=== PATIENT | female | born 1985 | race Caucasian/White ===

== ENCOUNTER → 2023-02-15 | Outpatient (CLI) | payer OTHER ==
--- NOTE | 2023-02-15 15:44 | US ---
EXAMINATION TYPE: US transvaginal DATE OF EXAM: 02/15/2023 COMPARISON: CLINICAL INDICATION: Female, 37 years old with history of R10.2 PELVIC AND PERINEAL PAIN; Patient sta agueda irregular menses. Hx of tubal ligation and csection x 1. TECHNIQUE: Transvaginal (TV). Date of LMP: 12/29/2022, EXAM MEASUREMENTS: Uterus: 9.5 x 5.9 x 5.7 cm Endometrial Stripe: 2.8 cm Right Ovary: 2.7 x 1.7 x 1.5 cm Left Ovary: 3.8 x 3.5 x 2.5 cm 1. Uterus: Anteverted hypoechoic vascular complex lesion seen at anterior ALEXI near csection scar = 1.4 x 1.3 x 1.0 cm 2. Endometrium: Appears thickened 3. Right Ovary: follicles seen 4. Left Ovary: complex hypoechoic lesion = 2.8 x 2.8 x 2.1 cm Spectral, color and waveform doppler imaging shows good arterial and venous flow within the ovaries ; there is no evidence for ovarian torsion. 5. Bilateral Adnexa: free fluid in right adnexa 6. Posterior cul-de-sac: free fluid IMPRESSION: 1. Complex lesion left ovary reflect a hemorrhagic cyst or complex cyst. Follow-up can be obtained i n 6-12 weeks. 2. Nonspecific hypoechoic vascular complex lesion seen at anterior ALEXI
== END | disposition home or self-care (01) ==
LOC: RADUSWWP 14:54
PROVIDERS: ATTEND Family Medicine
DX: N83.8 Other noninflammatory disorders of ovary, fallopian tube and broad ligament (principal); R10.2 Pelvic and perineal pain
CPT/HCPCS: 76830

== ENCOUNTER 2023-09-29 00:52 | Emergency (ER) | payer OTHER ==
[2023-09-29 01:17] VITALS: BP 145/89; PULSE 56; RESP 18; TEMP 98
[2023-09-29] MEDS ORDERED: KETOROLAC 15 MG/ML 1 ML VIAL IM STA (01:19)
[2023-09-29] MEDS ORDERED: ACET/COD 300 MG/30 MG STARTER PACK 6 TAB BTL PO STA ×2 (01:20→01:21)
--- NOTE | 2023-09-29 01:24 | ED ---
General Adult HPI - General Chief complaint: Dental/Oral Stated complaint: Tooth pain Time Seen by Provider: 09/29/23 01:08 Source: patient, RN notes reviewed Mode of arrival: ambulatory Limitations: no limitations - History of Present Illness Initial comments: 38-year-old female with no significant past medical history presents the emergency department with a chief complaint of dental pain. Patient reports that she has had worsening dental pain for the last month however is increased in pain when she tried to lay down to go to sleep tonight. She does report she has a dental appointment however is nontoxic October. She reports pain that is radiating to her face. Denies any history distress, cough, drooling. She was seen and evaluated at [facility] case her cephalexin and Toradol which has not helped her symptoms. - Related Data Home Medications Medication Instructions Recorded Confirmed Dextroamphetamine/Amphetamine 20 mg PO DAILY 06/23/23 07/07/23 [Adderall] Previous Rx's Medication Instructions Recorded Ibuprofen [Motrin] 800 mg PO Q8H #30 tab 09/29/23 Allergies Allergy/AdvReac Type Severity Reaction Status Date / Time No Known Allergies Allergy Verified 07/07/23 10:20 Review of Systems ROS Statement: Those systems with pertinent positive or pertinent negative responses have been documented in the HPI. ROS Other: All systems not noted in ROS Statement are negative. Past Medical History Additional Past Medical History / Comment(s): ADHD History of Any Multi-Drug Resistant Organisms: None Reported Past Surgical History: Cholecystectomy Past Psychological History: ADD/ADHD Smoking Status: Former smoker Past Alcohol Use History: None Reported Past Drug Use History: None Reported General Exam - General Exam Comments Initial Comments: General: Alert, in no acute distress Head: atraumatic normocephalic. Eyes PERRL, EOMI intact, mucous membranes moist, tooth 30 Respiratory: Lungs clear to auscultation bilaterally Cardiovascular: Rate regular rate and Abdominal: Soft without guarding or rebound Extremities: Normal inspection with full range of motion and normal capillary refill Neuroogic: alert and oriented 3, CN II-XII intact, able to ambulate with steady gait Skin: warm dry and intact with normal color Limitations: no limitations Course Vital Signs 09/29/23 00:55 Temperature 98 F Pulse Rate 56 L Respiratory 18 Rate Blood Pressure 145/89 O2 Sat by Pulse 100 Oximetry Medical Decision Making - Medical Decision Making Was pt. sent in by a medical professional or institution (CRYSTAL Kilpatrick, [employer], urgent care, hospital, or intermediate...) When possible be specific @ -[No] Did you speak to anyone other than the patient for history (EMS, parent, family, police, friend...)? What history was obtained from this source @ -[No] Did you review nursing and triage notes (agree or disagree)? Why? @ -[I reviewed and agree with nursing and triage notes] Were old charts reviewed (outside hosp., previous admission, EMS record, old EKG, old radiological studies, urgent care reports/EKG's, intermediate records)? Report findings @ -[No old charts were reviewed] Differential Diagnosis (chest pain, altered mental status, abdominal pain women, abdominal pain men, vaginal bleeding, weakness, fever, dyspnea, syncope, headache, dizziness, GI bleed, back pain, seizure, CVA, palpatations, mental health, musculoskeletal)? @ -[not applicable] EKG interpreted by me (3pts min.). @ -[As above] X-rays interpreted by me (1pt min.). @ -[None done] CT interpreted by me (1pt min.). @ -[None done] U/S interpreted by me (1pt. min.). @ -[None done] What testing was considered but not performed or refused? (CT, X-rays, U/S, labs)? Why? @ -[None] What meds were considered but not given or refused? Why? @ -[None] Did you discuss the management of the patient with other professionals (professionals i.e. CRYSTAL Kilpatrick, [employer]ER, lab, RT, psych nurse, social media campaign manager, lion trainer, teacher, commissioned fire officer, renal case manager)? Give summary @ -[No] Was smoking cessation discussed for >3mins.? @ -[No] Was critical care preformed (if so, how long)? @ -[No] Were there social determinants of health that impacted care today? How? (Homelessness, low income, unemployed, alcoholism, drug addiction, transportati on, low edu. Level, literacy, decrease access to med. care, [place] [facility], rehab)? @ -[No] Was there de-escalation of care discussed even if they declined (Discuss DNR or withdrawal of care, Hospice)? DNR status @ -[No] What co-morbidities impacted this encounter? (DM, HTN, Smoking, COPD, CAD, Cancer, CVA, ARF, Chemo, Hep., AIDS, mental health diagnosis, sleep apnea, morbid obesity)? @ -[None] Was patient admitted / discharged? Hospital course, mention meds given and route, prescriptions, significant lab abnormalities, going to OR and other pertinent info. @ -Discharged. This is a pleasant 38-year-old female who presents the emergency department with dental pain. Exam reveals severe tooth decay at 2:30. No evidence of dental abscess. Patient will be given Toradol, Tylenol with Codeine starter pack and Motrin 800. Technical follow-up with dentist in 3-5 days. Precautions discussed at length. Patient discharged in stable condition. Case is discussed with Dr. Tillman who agrees with POC. Undiagnosed new problem with uncertain prognosis? @ -[No] Drug Therapy requiring intensive monitoring for toxicity (Heparin, Nitro, Insulin, Cardizem)? @ -[No] Were any procedures done? @ -[No] Diagnosis/symptom? @ -Dental Pain Acute, or Chronic, or Acute on Chronic? @ -Acute Uncomplicated (without systemic symptoms) or Complicated (systemic symptoms)? @ -Uncomplicated Side effects of treatment? @ -[No] Exacerbation, Progression, or Severe Exacerbation? @ -[No] Poses a threat to life or bodily function? How? (Chest pain, [place], [place], pneumonia, PE, COPD, DKA, ARF, appy, cholecystitis, CVA, Diverticulitis, Homicidal, Suicidal, threat to staff... and all critical care pts) @ -Low likelihood Disposition Clinical Impression: Pain, dental Disposition: HOME SELF-CARE Condition: Stable Instructions (If sedation given, give patient instructions): Toothache (ED) Additional Instructions: Please take Tylenol Motrin for pain Please follow-up with your dentist in 3-5 days Please return to the nearest emergency department if worsening pain, fever, facial swelling or difficulty in breathing develop Prescriptions: Ibuprofen [Motrin] 800 mg PO Q8H #30 tab Is patient prescribed a controlled substance at d/c from ED?: No Referrals: Mikhail Franco DO [Primary Care Provider] - 1-2 days Time of Disposition: 01:24
== END 2023-09-29 02:01 | disposition home or self-care (01) ==
LOC: EC 00:52
DX: K08.89 Other specified disorders of teeth and supporting structures (principal); Z86.59 Personal history of other mental and behavioral disorders; Z87.891 Personal history of nicotine dependence
CPT/HCPCS: 99282; 96372; J1885

== ENCOUNTER 2023-09-29 04:14 | Emergency (ER) | payer OTHER ==
[2023-09-29] MEDS ORDERED: AMOXIC-POT CLAV 875-125MG 1 EACH TAB PO STA (04:35)
[2023-09-29] MEDS ORDERED: DEXAMETHASONE SOD PHOSPHATE 10 MG/ML 1 ML VIAL IM STA (04:35)
[2023-09-29] MEDS ORDERED: traMADol 50 MG TAB PO STA (04:35)
--- NOTE | 2023-09-29 04:36 | ED ---
ENT HPI - General Chief complaint: Shortness of Breath Stated complaint: numbness in face/sob Time Seen by Provider: 09/29/23 04:26 Source: patient, RN notes reviewed, old records reviewed Mode of arrival: ambulatory Limitations: no limitations - History of Present Illness Initial comments: This is a 38-year-old female to the ER today. She presents today for evaluation regards to facial swelling significant facial swelling that occurred after visit earlier today. Patient is in the emergency room earlier today for evaluation regards to dental pain severe. Patient does have an appointment to follow-up with dentist in the new here. She has significant swelling and pain in her jaw right side of her neck and face MD complaint: other (Significant facial pain tooth pain) -: days(s) Location: tooth # Severity: severe Severity scale (1-10): 8 Consistency: constant Improves with: none Worsens with: none Context- Dental: history of dental caries, poor dental care Associated Symptoms: other - Related Data Home Medications Medication Instructions Recorded Confirmed Dextroamphetamine/Amphetamine 20 mg PO DAILY 06/23/23 07/07/23 [Adderall] Previous Rx's Medication Instructions Recorded Amoxic-Pot Clav 875-125Mg 1 tab PO Q12HR #20 tablet 09/29/23 [Augmentin 875-125] Ibuprofen [Motrin] 800 mg PO Q8H #30 tab 09/29/23 dexAMETHasone [Decadron] 6 mg PO TID #6 tablet 09/29/23 Allergies Allergy/AdvReac Type Severity Reaction Status Date / Time No Known Allergies Allergy Verified 09/29/23 04:20 Review of Systems ROS Statement: Those systems with pertinent positive or pertinent negative responses have been documented in the HPI. ROS Other: All systems not noted in ROS Statement are negative. Past Medical History Additional Past Medical History / Comment(s): ADHD History of Any Multi-Drug Resistant Organisms: None Reported Past Surgical History: Cholecystectomy Past Psychological History: ADD/ADHD Smoking Status: Former smoker Past Alcohol Use History: None Reported Past Drug Use History: None Reported General Exam Limitations: no limitations General appearance: alert, in no apparent distress Head exam: Present: atraumatic, normocephalic, normal inspection Eye exam: Present: normal appearance, PERRL, EOMI. Absent: scleral icterus, conjunctival injection, periorbital swelling ENT exam: Present: other Neck exam: Present: normal inspection. Absent: tenderness, meningismus, lymphadenopathy Respiratory exam: Present: normal lung sounds bilaterally. Absent: respiratory distress, wheezes, rales, rhonchi, stridor Cardiovascular Exam: Present: regular rate, normal rhythm, normal heart sounds. Absent: systolic murmur, diastolic murmur, rubs, gallop, clicks GI/Abdominal exam: Present: soft, normal bowel sounds. Absent: distended, tenderness, guarding, rebound, rigid Extremities exam: Present: normal inspection, full ROM, normal capillary refill. Absent: tenderness, pedal edema, joint swelling, calf tenderness Back exam: Present: normal inspection Neurological exam: Present: alert, oriented X3, CN II-XII intact Psychiatric exam: Present: normal affect, normal mood Skin exam: Present: warm, dry, intact, normal color. Absent: rash Course Vital Signs 09/29/23 09/29/23 09/29/23 04:20 04:30 06:22 Pulse Rate 63 72 Respiratory 18 22 18 Rate Blood Pressure 179/19 158/95 O2 Sat by Pulse 99 99 Oximetry - Reevaluation(s) Reevaluation #1: 09/29/23 05:05 Medical records reviewed Reevaluation #2: 09/29/23 06:22 Patient symptoms are improved Reevaluation #3: 09/29/23 06:22 Patient informed of results questions answered Reevaluation #4: 09/29/23 04:55 Was pt. sent in by a medical professional or institution (, PA, SLEEPING [employer] CONDUCTOR, urgent care, hospital, or intermediate...) When possible be specific @ -no Did you speak to anyone other than the patient for history (EMS, parent, family, police, friend...)? What history was obtained from this source @ -no Did you review nursing and triage notes (agree or disagree)? Why? @ -agree Are old charts reviewed (outside hosp., previous admission, EMS record, old EKG, old radiological studies, urgent care reports/EKG's, intermediate records)? Report findings @ -yes Differential Diagnosis (chest pain, altered mental status, abdominal pain women, abdominal pain men, vaginal bleeding, weakness, fever, dyspnea, syncope, headache, dizziness, GI bleed, back pain, seizure, CVA, palpatations, mental hea lth, musculoskeletal)? @ -prior EKG interpreted by me (3pts min.). @ -no X-rays interpreted by me (1pt min.). @ -yes negative for acute disease CT interpreted by me (1pt min.). @ -no U/S interpreted by me (1pt. min.). @ -no What testing was considered but not performed or refused? (CT, X-rays, U/S, labs)? Why? @ -none What meds were considered but not given or refused? Why? @ -none Did you discuss the management of the patient with other professionals (professionals i.e. , PA, SLEEPING CAR CONDUCTOR, lab, RT, psych nurse, social welfare administrator, cyber engineer, teacher, network security officer, nurse case management)? Give summary @ -no Was smoking cessation discussed for >3mins.? @ -no Was critical care preformed (if so, how long)? @ -no Were there social determinants of health that impacted care today? How? (Homelessness, low income, unemployed, alcoholism, drug addiction, transportation, low edu. Level, literacy, decrease access to med. care, [facility], rehab)? @ -none Was there de-escalation of care discussed even if they declined (Discuss DNR or withdrawal of care, Hospice)? DNR status @ -no What co-morbidities impacted this encounter? (DM, HTN, Smoking, COPD, CAD, Cancer, CVA, ARF, Chemo, Hep., AIDS, mental health diagnosis, sleep apnea, morbid obesity)? @ -none Was patient admitted / discharged? Hospital course, mention meds given and route, prescriptions, significant lab abnormalities, going to OR and other pert inent info. @ - 38 female with significant facial swelling right-sided facial swelling from dental abscess and history of dental caries place on antibiotics, patient can be discharged home swelling is significantly improved here in the ER Undiagnosed new problem with uncertain prognosis? @ -no Drug Therapy requiring intensive monitoring for toxicity (Heparin, Nitro, Insulin, Cardizem)? @ -no Were any procedures done? @ -no Diagnosis/symptom? @ -Dental abscess Acute, or Chronic, or Acute on Chronic? @ -Acute Uncomplicated (without systemic symptoms) or Complicated (systemic symptoms)? @ -Complicated Side effects of treatment? @ -no Exacerbation, Progression, or Severe Exacerbation? @ -exacerbation Poses a threat to life or bodily function? How? (Chest pain, [place], [place], pneumonia, PE, COPD, DKA, ARF, appy, cholecystitis, CVA, Diverticulitis, Homicidal, Suicidal, threat to staff... and all critical care pts) @ -no Medical Decision Making - Medical Decision Making 38 female with significant facial swelling Right-sided facial swelling from dental abscess and history of dental caries place on antibiotics, patient can be discharged home swelling is significantly improved here in the ER - Radiology Data Radiology results: report reviewed (X-ray soft tissue neck negative for acute disease), image reviewed Disposition Clinical Impression: Pain, dental, Facial swelling Disposition: HOME SELF-CARE Condition: Good Instructions (If sedation given, give patient instructions): Dental Abscess (ED) Prescriptions: Amoxic-Pot Clav 875-125Mg [Augmentin 875-125] 1 tab PO Q12HR #20 tablet dexAMETHasone [Decadron] 6 mg PO TID #6 tablet Is patient prescribed a controlled substance at d/c from ED?: No Referrals: Mikhail Franco DO [Primary Care Provider] - 1-2 days Mesfin Miles DDS [STAFF PHYSICIAN] - 1-2 days
[2023-09-29] MEDS ORDERED: ETODOLAC 400 MG TAB PO STA (04:37)
[2023-09-29 04:40] VITALS: RESP 18
[2023-09-29] MEDS ORDERED: traMADol 50 MG STARTER PACK 3 TAB BTL PO STA (06:22)
[2023-09-29] MEDS ORDERED: AMOXIC-POT CLAV 875MG STARTER PACK 2 TAB BTL PO STA (06:22)
[2023-09-29 06:57] VITALS: BP 158/95; PULSE 72
--- NOTE | 2023-09-29 07:25 | XR ---
EXAM: XR Soft Tissue Neck CLINICAL HISTORY: ITS.REASON XR Reason: pain TECHNIQUE: Frontal and lateral views of the soft tissues of the neck. COMPARISON: X-ray cervical spine dated 09/17/15 FINDINGS: Airway: Unremarkable. No abnormal narrowing. Bones/joints: Unremarkable. No acute fracture. Soft tissues: Unremarkable. No abnormal soft tissue prominence. Normal epiglottis. IMPRESSION: No evidence of acute abnormality
== END 2023-09-29 06:39 | disposition home or self-care (01) ==
LOC: EC 04:14
DX: K04.7 Periapical abscess without sinus (principal); R22.9 Localized swelling, mass and lump, unspecified; Z86.59 Personal history of other mental and behavioral disorders; Z87.891 Personal history of nicotine dependence
CPT/HCPCS: 70360; 99285; 96372; J1100

== ENCOUNTER 2025-02-07 11:34 | Emergency (ER) | payer OTHER ==
[2025-02-07 11:37] VITALS: TEMP 98.1
--- NOTE | 2025-02-07 11:54 | ED ---
Extremity Problem HPI - General Chief complaint: Extremity Problem,Nontraumatic Stated complaint: R shoulder/arm pain Time Seen by Provider: 02/07/25 11:37 Source: patient, RN notes reviewed Mode of arrival: ambulatory Limitations: no limitations - History of Present Illness Initial comments: This is a 39-year-old female who presents to the emergency department for right arm pain. States that for the last 5 weeks she has had pain in the back of the right shoulder. Believes that she may have overused it or injured it from sleeping on it wrong. Pain is much worse with movement. For the last week she has started to notice pain and tingling going down the arm into her fingertips, which concerned her. She has not yet had this evaluated. She did have improvement with topical analgesics. - Related Data Home Medications Medication Instructions Recorded Confirmed Dextroamphetamine/Amphetamine 20 mg PO DAILY 06/23/23 07/07/23 [Adderall] Previous Rx's Medication Instructions Recorded Amoxic-Pot Clav 875-125Mg 1 tab PO Q12HR #20 tablet 09/29/23 [Augmentin 875-125] Ibuprofen [Motrin] 800 mg PO Q8H #30 tab 09/29/23 dexAMETHasone [Decadron] 6 mg PO TID #6 tablet 09/29/23 Ibuprofen 800 mg PO Q8H PRN #30 tab 02/07/25 methocarbamoL [Robaxin-750] 1,500 mg PO TID PRN #30 tab 02/07/25 Allergies Allergy/AdvReac Type Severity Reaction Status Date / Time No Known Allergies Allergy Verified 09/29/23 04:20 Review of Systems ROS Statement: Those systems with pertinent positive or pertinent negative responses have been documented in the HPI. ROS Other: All systems not noted in ROS Statement are negative. Past Medical History Additional Past Medical History / Comment(s): ADHD History of Any Multi-Drug Resistant Organisms: None Reported Past Surgical History: Cholecystectomy Past Psychological History: ADD/ADHD Smoking Status: Former smoker Past Alcohol Use History: None Reported Past Drug Use History: None Reported General Exam Limitations: no limitations General appearance: alert, in no apparent distress Head exam: Present: atraumatic, normocephalic, normal inspection Respiratory exam: Present: normal lung sounds bilaterally. Absent: respiratory distress, wheezes, rales, rhonchi, stridor Cardiovascular Exam: Present: regular rate, normal rhythm Extremities exam: Present: other (Tenderness to palpation of the posterior right shoulder. Range of motion induces pain. 2+ radial pulses) Neurological exam: Present: alert, oriented X3, CN II-XII intact Psychiatric exam: Present: normal affect, normal mood Skin exam: Present: warm, dry, intact, normal color. Absent: rash Course Vital Signs 02/07/25 02/07/25 11:34 13:06 Temperature 98.1 F Pulse Rate 73 63 Respiratory 16 18 Rate Blood Pressure 171/112 165/112 O2 Sat by Pulse 98 98 Oximetry Medical Decision Making - Medical Decision Making This is a 39-year-old female who presents to the emergency department for right shoulder pain. Was pt. sent in by a medical professional or institution? @ -No Did you speak to anyone other than the patient for history? @ -No Did you review nursing and triage notes? @ -Yes, and I agree, it is accurate with regards to the patient's symptoms. Were old charts reviewed? @ -No Differential Diagnosis? @ -Differential Musculoskeletal Muscular strain, contusion, ligament sprain, fracture, arthritis, septic arthritis, bursitis, cellulitis, muscle spasm, nerve compression, DVT, arterial occlusion, herpes zoster, electrolyte abnormality, tumor.... This is not meant to be in all inclusive list EKG interpreted by me (3pts min.)? @ -Not obtained X-rays interpreted by me (1pt min.)? @ -X-ray of the right shoulder and cervical spine obtained. My interpretation identifies no acute fractures. CT interpreted by me (1pt min.)? @ -Not obtained U/S interpreted by me (1pt. min.)? @ -Not obtained What testing was considered but not performed? (CT, X-rays, U/S, labs)? Why? @ -None What meds were considered but not given? Why? @ -None Did you discuss the management of the patient with other professionals? @ -No Did you reconcile home meds? @ -No Was smoking cessation discussed for >3mins.? @ -No Was critical care preformed (if so, how long)? @ -No Were there social determinants of health that impacted care today? How? (Homelessness, low income, unemployed, alcoholism, drug addiction, transportation, low edu. Level, literacy, decrease access to med. care, correction, rehab)? @ -No Was there de-escalation of care discussed even if they declined? (Discuss DNR or withdrawal of care, Hospice)? @ -No What co-morbidities impacted this encounter? (DM, HTN, Smoking, COPD, CAD, Cancer, CVA, Hep., AIDS, mental health diagnosis, sleep apnea, morbid obesity)? @ -None Was patient admitted / discharged? @ -Discharged. X-ray of the right shoulder and cervical spine obtained revealing no acute process. Pain was treated in the emergency department. Prescription for ibuprofen and Robaxin provided with dosing instructions reviewed. She was also given information for follow-up with orthopedics if symptoms persist. Patient discharged home in stable condition. Case discussed with ED attending Dr. Davidson. Return precautions reviewed in depth, the patient is instructed to return to the emergency department with any new, worsening, or concerning symptoms. Patient verbalized understanding. Undiagnosed new problem with uncertain prognosis? @ -None Drug Therapy requiring intensive monitoring for toxicity (Heparin, Nitro, Insulin, Cardizem)? @ -None Were any procedures done? @ -None Diagnosis/symptom? @ -Right shoulder pain Acute, or Chronic, or Acute on Chronic? @ -Chronic Uncomplicated (without systemic symptoms) or Complicated (systemic symptoms)? @ -Uncomplicated Side effects of treatment? @ -None Exacerbation, Progression, or Severe Exacerbation] @ -Exacerbation Poses a threat to life or bodily function? @ -No - Radiology Data Radiology results: report reviewed, image reviewed Disposition Clinical Impression: Right shoulder pain, Cervical radiculopathy Disposition: HOME SELF-CARE Instructions (If sedation given, give patient instructions): Cervical Radiculopathy (ED), Shoulder Pain (ED) Additional Instructions: Return to the emergency department with any new, worsening, or concerning symptoms. Alternate with ibuprofen and Tylenol as needed for pain relief. Take the Robaxin as 1 to 2 tablets up to 3-4 times daily. Follow-up with orthopedics as listed below if symptoms do not improve. Follow up with your primary care provider in 1-2 days. Prescriptions: Ibuprofen 800 mg PO Q8H PRN #30 tab PRN Reason: Pain methocarbamoL [Robaxin-750] 1,500 mg PO TID PRN #30 tab PRN Reason: Pain Is patient prescribed a controlled substance at d/c from ED?: No Referrals: None,Stated [Primary Care Provider] - 1-2 days Mohit Lockwood DO [Doctor of Osteopathic Medicine] - 1-2 days Time of Disposition: 12:55
[2025-02-07] MEDS: ACETAMINOPHEN TAB 500 MG TAB PO STA (11:59)
[2025-02-07] MEDS: LIDOCAINE 4% PATCH TOPICAL ONE (12:02)
[2025-02-07] MEDS: KETOROLAC 15 MG/ML 1 ML VIAL IM STA (12:04)
[2025-02-07] MEDS: DEXAMETHASONE SOD PHOSPHATE 10 MG/ML 1 ML VIAL IM STA (12:04)
--- NOTE | 2025-02-07 12:34 | XR ---
EXAMINATION TYPE: XR shoulder complete RT DATE OF EXAM: 02/07/2025 12:29 PM INDICATION: Patient age:Female; 39 years old; Reason for study: Pain; pain COMPARISON: None TECHNIQUE: The right shoulder was examined in AP, internally rotated and scapular Y projections. . FINDINGS: No evidence of acute osseous pathology, joint dislocation, or soft tissue swelling. The remaining por tions of the visualized chest are unremarkable. IMPRESSION: No acute osseous pathology. [facility], , 02/07/2025 12:32 PM
--- NOTE | 2025-02-07 12:34 | XR ---
EXAMINATION TYPE: XR cervical spine comp DATE OF EXAM: 02/07/2025 12:29 PM INDICATION: Patient age:Female; 39 years old; Reason for study: Pain; PHH, pain COMPARISON: Cervical spine x-ray 09/17/2015 TECHNIQUE: The cervical spine was imaged in total, lateral, bilateral oblique, and odontoid projectio ns. FINDINGS: No acute fracture. Similar mild reversal of the cervical lordosis. The intervertebral disk spaces are preserved. Pedicles are intact. Soft tissues are within normal limits. The odontoid appears intact . IMPRESSION: 1. No fracture or dislocation. 2. No significant degenerative disc disease identified. [facility], , 02/07/2025 12:31 PM
[2025-02-07] MEDS: ACET/COD 300 MG/30 MG STARTER PACK 6 TAB BTL PO STA (13:05)
[2025-02-07 13:07] VITALS: BP 165/112; PULSE 63; RESP 18
== END 2025-02-07 13:07 | disposition home or self-care (01) ==
LOC: EC 11:34
DX: M54.12 Radiculopathy, cervical region (principal); M25.511 Pain in right shoulder; Z87.891 Personal history of nicotine dependence
CPT/HCPCS: 99284; 96372 ×2; 72050; 73030; J1100; J1885